=== PATIENT | male | born 1945 | race Hispanic/Latino ===

== ENCOUNTER 2019-09-15 11:09 | Emergency (ER) | payer MEDICARE ==
--- NOTE | 2019-09-15 12:03 | Event Note ---
ED Screening Note Date of service: 09/15/19 Time: 12:02 ED Screening Note: Pt complains of enlarging cyst on posterior neck denies pain This initial assessment/diagnostic orders/clinical plan/treatment(s) is/are subject to change based on patients health status, clinical progression and re-assessment by fellow clinical providers in the ED. Further treatment and workup at subsequent clinical providers discretion. Patient/guardian urged not to elope from the ED as their condition may be serious if not clinically assessed and managed. Initial orders include: ACC eval
[2019-09-15] MEDS ORDERED: LIDOCAINE-MPF (1%) 10 MG/1 ML VIAL 5 ML INFILTRATI ONE (14:29)
--- NOTE | 2019-09-15 14:53 | Emergency Department Report ---
- General Chief complaint: Skin/Abscess/Foreign Body Stated complaint: BOIL ON BACK Time Seen by Provider: 09/15/19 12:01 Source: patient, EMS Mode of arrival: Ambulatory Limitations: Language Barrier - History of Present Illness Initial comments: Patient is a 73-year-old male presents emergency room with complaints of an lump to his left shoulder that began about 5-6 months ago. He states that it has slowly been enlarging. He denies any drainage, fever, pain. He states he has a past medical history of hypertension, hyperlipidemia, CAD. He denies any allergies medications. - Related Data Home Medications Medication Instructions Recorded Confirmed Last Taken Albuterol Sulfate [Ventolin HFA] 2 puff IH Q6H PRN 01/08/15 01/08/15 01/08/15 07:05 Aspirin [Aspirin BABY CHEW TAB] 81 mg PO DAILY 01/08/15 01/08/15 01/08/15 07:15 324 mg Isosorbide Dinitrate 30 mg PO DAILY 01/08/15 01/08/15 01/08/15 07:30 Previous Rx's Medication Instructions Recorded Last Taken Type Rosuvastatin Calcium [Crestor] 40 mg PO QHS #30 tablet 01/09/15 Unknown Rx Ticagrelor [Brilinta] 90 mg PO BID #60 tablet 01/09/15 Unknown Rx Allergies Allergy/AdvReac Type Severity Reaction Status Date / Time No Known Allergies Allergy Unverified 01/07/15 15:43 Abscess Boil HPI - HPI Chief Complaint: Skin/Abscess/Foreign Body Stated Complaint: BOIL ON BACK Time Seen by Provider: 09/15/19 12:01 Home Medications: Home Medications Medication Instructions Recorded Confirmed Last Taken Albuterol Sulfate [Ventolin HFA] 2 puff IH Q6H PRN 01/08/15 01/08/15 01/08/15 07:05 Aspirin [Aspirin BABY CHEW TAB] 81 mg PO DAILY 01/08/15 01/08/15 01/08/15 07:15 324 mg Isosorbide Dinitrate 30 mg PO DAILY 01/08/15 01/08/15 01/08/15 07:30 Previous Rx's Medication Instructions Recorded Last Taken Type Rosuvastatin Calcium [Crestor] 40 mg PO QHS #30 tablet 01/09/15 Unknown Rx Ticagrelor [Brilinta] 90 mg PO BID #60 tablet 01/09/15 Unknown Rx Allergies/Adverse Reactions: Allergies Allergy/AdvReac Type Severity Reaction Status Date / Time No Known Allergies Allergy Unverified 01/07/15 15:43 ED Review of Systems ROS: Stated complaint: BOIL ON BACK Other details as noted in HPI Comment: All other systems reviewed and negative ED Past Medical Hx - Past Medical History Previous Medical History?: Yes Hx Hypertension: No Hx Heart Attack/AMI: No Hx Arthritis: Yes Hx COPD: Yes Hx HIV: No - Surgical History Past Surgical History?: No Hx Coronary Stent: No - Social History Smoking Status: Current Some Day Smoker Substance Use Type: Alcohol - Medications Home Medications: Home Medications Medication Instructions Recorded Confirmed Last Taken Type Albuterol Sulfate [Ventolin HFA] 2 puff IH Q6H PRN 01/08/15 01/08/15 01/08/15 07:05 History Aspirin [Aspirin BABY CHEW TAB] 81 mg PO DAILY 01/08/15 01/08/15 01/08/15 07:15 History 324 mg Isosorbide Dinitrate 30 mg PO DAILY 01/08/15 01/08/15 01/08/15 07:30 History Rosuvastatin Calcium [Crestor] 40 mg PO QHS #30 tablet 01/09/15 Unknown Rx Ticagrelor [Brilinta] 90 mg PO BID #60 tablet 01/09/15 Unknown Rx ED Physical Exam - General Limitations: Language Barrier General appearance: alert, in no apparent distress - Head Head exam: Present: atraumatic, normocephalic - Eye Eye exam: Present: normal appearance - ENT ENT exam: Present: mucous membranes moist - Neurological Exam Neurological exam: Present: alert, oriented X3 - Psychiatric Psychiatric exam: Present: normal affect, normal mood - Skin Skin exam: Present: warm, dry, other (3 cm area of fluctuance present to the left posterior shoulder, there is a circular opening present with sebaceous material that is able to be manually expressed, no surrounding erythema or increased warmth, no necrosis, there is a foul odor ) ED Course Vital Signs 09/15/19 11:58 Temperature 97.3 F L - I & D Left Shoulder Type of Procedure: Simple Site: left posterior shoulder Blade Size: 11 I & D Procedure: betadine prep, sterile drapes applied, sterile dressing applied Progress: Skin prepped with Betadine, 2 mL of 1% lidocaine without epinephrine used as anesthetic, betadine prep again, sterile drapes applied, 0.5 cm incision made to extend the opening that is already present, copious amounts of foul sebaceous- like material expressed, irrigated with saline, packed with iodoform gauze, patient tolerated well, no complications, no bleeding, sterile dressing applied ED Medical Decision Making - Medical Decision Making Patient is a 73-year-old male presents emergency room with complaints of an lump to his left shoulder that began about 5-6 months ago. He states that it has slowly been enlarging. He denies any drainage, fever, pain. He states he has a past medical history of hypertension, hyperlipidemia, CAD. He denies any allergies medications. vitals written on patients chart are stable, asked [facility] staff to record in the computer. on exam: 3 cm area of fluctuance present to the left posterior shoulder, there is a circular opening present with sebaceous material that is able to be manually expressed, no surrounding erythema or increased warmth, no necrosis, there is a foul odor. incision and drainage performed and sebaceous material expressed consistent with sebaceous cyst. packed with iodoform gauze. advised pt to please keep area clean, dry, covered. may wash with soap and water and immediately dry. no hot tub, pool, soaking in water. Packing will need to be removed in the next 2-3 days. Follow-up with a primary care doctor. Return to the emergency room for any new or worsening symptoms. - Differential Diagnosis abscess, sebaceous cyst, carbuncle, furuncle, cyst, lipoma Critical care attestation.: If time is entered above; I have spent that time in minutes in the direct care of this critically ill patient, excluding procedure time. ED Disposition Clinical Impression: Sebaceous cyst Disposition: DC-01 TO HOME OR SELFCARE Is pt being admited?: No Does the pt Need Aspirin: No Condition: Stable Instructions: Abscess Incision and Drainage (ED) Additional Instructions: please keep area clean, dry, covered. may wash with soap and water and immediately dry. no hot tub, pool, soaking in water. Packing will need to be removed in the next 2-3 days. Follow-up with a primary care doctor. Return to the emergency room for any new or worsening symptoms. Referrals: CAMILLA RICCI MD [Staff Physician] - 2-3 Days [facility] [Provider Group] - 2-3 Days Time of Disposition: 14:53 Print Language: GREENLAND[place]
== END 2019-09-15 15:11 | disposition home or self-care (01) ==
LOC: ED 11:09
DX: L72.3 Sebaceous cyst (principal); J44.9 Chronic obstructive pulmonary disease, unspecified; I10 Essential (primary) hypertension; M19.90 Unspecified osteoarthritis, unspecified site; F17.200 Nicotine dependence, unspecified, uncomplicated; E78.5 Hyperlipidemia, unspecified; Z79.899 Other long term (current) drug therapy